=== PATIENT | female | born 1940 | race Caucasian/White ===

== ENCOUNTER 2020-11-11 22:00 | Emergency (ER) | payer MEDICARE, OTHER ==
--- NOTE | 2020-11-11 23:05 | EDM.PDOC ---
ED HPI GENERAL MEDICAL PROBLEM - General Chief Complaint: Respiratory Problem Stated Complaint: WEAKNESS FOR 1 WEEK POSSIBLE COVID Time Seen by Provider: 11/11/20 22:02 Source of Information: Reports: Patient History Limitations: Reports: No Limitations - History of Present Illness INITIAL COMMENTS - FREE TEXT/NARRATIVE: This is a 79-year-old female. She has had some periods of vertigo over the last week but had a treatment and now the vertigo is gone. Over the last 7 days as well she has been very tired and feeling weak with a decreased appetite. One of her friends told her she needed to be checked for Covid so she comes to the ER to be checked. Denies any nausea vomiting diarrhea, no headache, no shortness of breath though she might have a dry cough occasionally, no headache, no fever, no change in her taste. She does state that she has developed some stress incontinence and sometimes it smells bad down there after she goes to the bathroom but she denies any urinary symptoms. She has not been exposed to anyone with Covid that she is aware of or anyone with the flu. - Related Data Allergies Allergy/AdvReac Type Severity Reaction Status Date / Time No Known Allergies Allergy Verified 11/11/20 22:18 Home Meds: Home Meds Aspirin [Adult Aspirin Regimen] 81 mg PO DAILY 11/11/20 [History] Calcium Carbonate/Vitamin D3 [Calcium 1,000 + D3 Caplet] 1 tab PO DAILY 11/11/20 [History] Cyanocobalamin (Vitamin B-12) [Vitamin B-12] 1 cap PO DAILY 11/11/20 [History] Magnesium 250 mg PO DAILY 11/11/20 [History] Pantoprazole [ProTONIX] 40 mg PO DAILY 11/11/20 [History] Simvastatin [Zocor] 20 mg PO DAILY 11/11/20 [History] amLODIPine Besylate [Norvasc] 20 mg PO BID 11/11/20 [History] Past Medical History HEENT History: Reports: Cataract, Impaired Vision Cardiovascular History: Reports: High Cholesterol, Hypertension Respiratory History: Reports: COPD Musculoskeletal History: Reports: Arthritis - Infectious Disease History Infectious Disease History: Reports: Chicken Pox, Measles, Mumps, Rubella - Past Surgical History HEENT Surgical History: Reports: Cataract Surgery Social & Family History - Family History Family Medical History: No Pertinent Family History - Tobacco Use Tobacco Use Status *Q: Former Tobacco User Used Tobacco, but Quit: Yes Month/Year Tobacco Last Used: 10/2009 - Caffeine Use Caffeine Use: Reports: Coffee - Recreational Drug Use Recreational Drug Use: No ED ROS GENERAL - Review of Systems Review Of Systems: See Below Constitutional: Reports: Weakness, Fatigue. Denies: Fever, Chills HEENT: Reports: No Symptoms Respiratory: Reports: Cough. Denies: Shortness of Breath Cardiovascular: Reports: No Symptoms Endocrine: Reports: No Symptoms GI/Abdominal: Denies: Abdominal Pain, Diarrhea, Nausea, Vomiting : Reports: Incontinence. Denies: Dysuria Musculoskeletal: Reports: No Symptoms Skin: Reports: No Symptoms Neurological: Reports: Other (Vertigo that resolved) Psychiatric: Reports: No Symptoms Hematologic/Lymphatic: Reports: No Symptoms ED EXAM, GENERAL - Physical Exam Exam: See Below Exam Limited By: No Limitations General Appearance: Alert, WD/WN, No Apparent Distress Eye Exam: Bilateral Eye: Normal Inspection Ears: Normal External Exam, Normal Canal, Normal TMs Nose: Normal Inspection Throat/Mouth: Normal Inspection, Normal Lips, Normal Oropharynx, Normal Voice, No Airway Compromise Head: Normocephalic Neck: Supple Respiratory/Chest: No Respiratory Distress, Lungs Clear, Normal Breath Sounds Cardiovascular: Regular Rate, Rhythm, No Murmur GI/Abdominal: Soft, Non-Tender, No Distention, No Mass. No: Guarding, Rigid, Rebound, Tender Back Exam: Normal Inspection, Full Range of Motion Extremities: Normal Inspection, Normal Range of Motion Neurological: Alert, Oriented Psychiatric: Normal Affect, Normal Mood Skin Exam: Warm, Dry Course - Vital Signs Last Recorded V/S: Last Vital Signs Temp 97.4 F 11/11/20 22:12 Pulse 93 11/11/20 22:12 Resp 18 11/11/20 22:12 BP 148/71 H 11/11/20 22:12 Pulse Ox 91 L 11/11/20 22:12 - Orders/Labs/Meds Orders: Active Orders 24 hr Category Date Time Status Oxygen Therapy Adult [Oxygen Therapy] [RC] ASDIRECTED Care 11/12/20 00:24 Active CXR [Chest 1V Frontal] [CR] Stat Exams 11/12/20 00:22 Taken Labs: Laboratory Tests 11/11/20 11/11/20 11/11/20 Range/Units 23:13 23:13 23:13 WBC 5.69 (3.98-10.04) K/mm3 RBC 4.22 (3.98-5.22) M/mm3 Hgb 12.0 (11.2-15.7) gm/dl Hct 36.5 (34.1-44.9) % MCV 86.5 (79.4-94.8) fl MCH 28.4 (25.6-32.2) pg MCHC 32.9 (32.2-35.5) g/dl RDW Std Deviation 44.2 (36.4-46.3) fL Plt Count 364 (182-369) K/mm3 MPV 8.8 L (9.4-12.3) fl Neut % (Auto) 69.6 (34.0-71.1) % Lymph % (Auto) 16.3 L (19.3-51.7) % Kem[place] % (Auto) 12.8 H (4.7-12.5) % Eos % (Auto) 0.5 L (0.7-5.8) Baso % (Auto) 0.4 (0.1-1.2) % Neut # (Auto) 3.96 (1.56-6.13) K/mm3 Lymph # (Auto) 0.93 L (1.18-3.74) K/mm3 Kem[place] # (Auto) 0.73 H (0.24-0.36) K/mm3 Eos # (Auto) 0.03 L (0.04-0.36) K/mm3 Baso # (Auto) 0.02 (0.01-0.08) K/mm3 Manual Slide Review Normal smear Sodium 137 (136-145) mEq/L Potassium 3.1 L (3.5-5.1) mEq/L Chloride 101 (98-107) mEq/L Carbon Dioxide 24 (21-32) mEq/L Anion Gap 15.1 H (5-15) BUN 13 (7-18) mg/dL Creatinine 1.2 H (0.55-1.02) mg/dL Est Cr Clr Drug Dosing 33.90 mL/min Estimated GFR (MDRD) 44 (>60) mL/min BUN/Creatinine Ratio 10.8 L (14-18) Glucose 122 H (83-115) mg/dL Calcium 8.6 (8.5-10.1) mg/dL Ferritin 343 H (8-252) ng/ml Total Bilirubin 0.3 (0.2-1.0) mg/dL AST 23 (15-37) U/L ALT 30 (14-59) U/L Alkaline Phosphatase 56 (46-116) U/L Lactate Dehydrogenase 270 H (81-234) U/L Troponin I < 0.017 (0.00-0.056) ng/mL C-Reactive Protein 8.5 H* (<1.0) mg/dL Total Protein 6.6 (6.4-8.2) g/dl Albumin 2.4 L (3.4-5.0) g/dl Globulin 4.2 gm/dL Albumin/Globulin Ratio 0.6 L (1-2) Urine Color (Yellow) Urine Appearance (Clear) Urine pH (5.0-8.0) Ur Specific [place] (1.005-1.030) Urine Protein (Negative) Urine Glucose (UA) (Negative) Urine Ketones (Negative) Urine Occult Blood (Negative) Urine Nitrite (Negative) Urine Bilirubin (Negative) Urine Urobilinogen (0.2-1.0) Ur Leukocyte Esterase (Negative) Urine RBC (0-5) /hpf Urine WBC (0-5) /hpf Ur Squamous Epith Cells (0-5) /hpf Urine Bacteria (FEW) /hpf Urine Mucus (FEW) /hpf SARS-CoV-2 RNA (XAVIER) (NEGATIVE) 11/11/20 11/11/20 Range/Units 23:23 23:23 WBC (3.98-10.04) K/mm3 RBC (3.98-5.22) M/mm3 Hgb (11.2-15.7) gm/dl Hct (34.1-44.9) % MCV (79.4-94.8) fl MCH (25.6-32.2) pg MCHC (32.2-35.5) g/dl RDW Std Deviation (36.4-46.3) fL Plt Count (182-369) K/mm3 MPV (9.4-12.3) fl Neut % (Auto) (34.0-71.1) % Lymph % (Auto) (19.3-51.7) % Kemper % (Auto) (4.7-12.5) % Eos % (Auto) (0.7-5.8) Baso % (Auto) (0.1-1.2) % Neut # (Auto) (1.56-6.13) K/mm3 Lymph # (Auto) (1.18-3.74) K/mm3 [place] # (Auto) (0.24-0.36) K/mm3 Eos # (Auto) (0.04-0.36) K/mm3 Baso # (Auto) (0.01-0.08) K/mm3 Manual Slide Review Sodium (136-145) mEq/L Potassium (3.5-5.1) mEq/L Chloride (98-107) mEq/L Carbon Dioxide (21-32) mEq/L Anion Gap (5-15) BUN (7-18) mg/dL Creatinine (0.55-1.02) mg/dL Est Cr Clr Drug Dosing mL/min Estimated GFR (MDRD) (>60) mL/min BUN/Creatinine Ratio (14-18) Glucose (83-115) mg/dL Calcium (8.5-10.1) mg/dL Ferritin (8-252) ng/ml Total Bilirubin (0.2-1.0) mg/dL AST (15-37) U/L ALT (14-59) U/L Alkaline Phosphatase (46-116) U/L Lactate Dehydrogenase (81-234) U/L Troponin I (0.00-0.056) ng/mL C-Reactive Protein (<1.0) mg/dL Total Protein (6.4-8.2) g/dl Albumin (3.4-5.0) g/dl Globulin gm/dL Albumin/Globulin Ratio (1-2) Urine Color Light yellow (Yellow) Urine Appearance Slt cloudy H (Clear) Urine pH 6.0 (5.0-8.0) Ur Specific [place] 1.015 (1.005-1.030) Urine Protein Negative (Negative) Urine Glucose (UA) Negative (Negative) Urine Ketones Negative (Negative) Urine Occult Blood Negative (Negative) Urine Nitrite Negative (Negative) Urine Bilirubin Negative (Negative) Urine Urobilinogen 0.2 (0.2-1.0) Ur Leukocyte Esterase Trace H (Negative) Urine RBC 0-5 (0-5) /hpf Urine WBC 5-10 H (0-5) /hpf Ur Squamous Epith Cells 0-5 (0-5) /hpf Urine Bacteria Few (FEW) /hpf Urine Mucus Not seen (FEW) /hpf SARS-CoV-2 RNA (XAVIER) Positive H (NEGATIVE) - Radiology Interpretation Free Text/Narrative:: X-ray shows some mild changes in the bases possibly Covid related since she is Covid positive - Re-Assessments/Exams Free Text/Narrative Re-Assessment/Exam: 11/12/20 00:33 The patient is turned out to be Covid positive. I did speak to the patient regarding this and we have noticed that her pulse ox on room air dips into the upper 80s but she does not appear to be short of breath or complained of being short of breath. I explained to her how she needs to isolate for 10 days and stay away from family members. Her daughter and were out in the lobby and she gave me permission to talk to them and I explained to them that she was Covid positive and her oxygen was a little low but I do not think she needs to be on oxygen at home at this time but she needs to follow-up with her family doctor by calling him and not going to the office. They do have a pulse ox at home that they will provide for her and I stated that if the pulse ox consistently is in the mid 80s or lower she might need to be on some oxygen. 11/12/20 01:25 Spoke to the patient and the family regarding the chest x-ray results. She has some mild changes probably related to Covid but she does not have any marked findings to suggest a severe Covid lung. We spoke Again about the pulse ox that if it is 86 or above she is probably doing okay but if it is consistently below 86 she will probably need to be on some oxygen and they will need to call her doctor to get that ordered. Departure - Departure Time of Disposition: 01:26 Disposition: Home, Self-Care 01 Condition: Fair Clinical Impression: Lab test positive for detection of COVID-19 virus, Shortness of breath Fatigue Qualifiers: Fatigue type: unspecified Qualified Code(s): R53.83 - Other fatigue - Discharge Information *PRESCRIPTION DRUG MONITORING PROGRAM REVIEWED*: Not Applicable *COPY OF PRESCRIPTION DRUG MONITORING REPORT IN PATIENT KWESI: Not Applicable Instructions: COVID-19 Frequently Asked Questions, COVID-19: How to Protect Yourself and Others - CDC, Prevent the Spread of COVID-19 if You Are Sick - [facility] Referrals: Rona Amezcua MD [Primary Care Provider] - Forms: ED Department Discharge Additional Instructions: You were seen in the ER for fatigue and found to be positive for COVID-19. Your pulse ox in the ER has been running in the upper 80s and lower 90s and your daughter has a fingertip pulse ox and check it periodically and as long as the pulse ox is 86 or above then you should be okay unless you are obviously having more shortness of breath but if your pulse ox is consistently below 86 you might need some oxygen at home and that can be ordered by your family doctor, on Friday I would call your family doctor and just let them know you are Covid positive. At home you need 10 days of isolation and that means that you probably should not be in the same room as her and obviously sleep in different rooms and have good handwashing and cleaning of surfaces so that he does not get COVID-19, once your 10 days of isolation are done then I would follow-up with your family doctor to make certain you are improving. If you obviously get worse with shortness of breath or severe fatigue or coughing or any other symptoms you might need to return to the ER Sepsis Event Note (ED) - Evaluation Sepsis Screening Result: No Definite Risk - Focused Exam Vital Signs: Vital Signs Temp Pulse Resp BP Pulse Ox 11/11/20 22:12 97.4 F 93 18 148/71 H 91 L - My Orders Last 24 Hours: My Active Orders 11/12/20 00:22 CXR [Chest 1V Frontal] [CR] Stat 11/12/20 00:24 Oxygen Therapy Adult [Oxygen Therapy] [RC] ASDIRECTED - Assessment/Plan Last 24 Hours: My Active Orders 11/12/20 00:22 CXR [Chest 1V Frontal] [CR] Stat 11/12/20 00:24 Oxygen Therapy Adult [Oxygen Therapy] [RC] ASDIRECTED
--- NOTE | 2020-11-12 09:24 | CR ---
Chest: Portable view of the chest was obtained. Comparison: No prior chest imaging is available. Heart size and mediastinum are within normal limits. Diffuse interstitial change is seen which is more focal within the right mid to lower lobe. Bony structures are osteopenic. Impression: 1. Interstitial change more focal within the right mid to lower lung. Findings most likely represent COVID pneumonia. 2. Other findings which are age-related. Diagnostic code #3
== END 2020-11-12 01:52 | disposition home or self-care (01) ==
LOC: JD.ED 22:00
DX: U07.1 COVID-19 (principal); E78.00 Pure hypercholesterolemia, unspecified; I10 Essential (primary) hypertension; J44.9 Chronic obstructive pulmonary disease, unspecified; M19.90 Unspecified osteoarthritis, unspecified site; Z87.891 Personal history of nicotine dependence; Z79.82 Long term (current) use of aspirin; Z79.899 Other long term (current) drug therapy
CPT/HCPCS: 36415; 71045; 80053; 81001; 82728; 83615; 84484; 85025; 86140; 99283; U0002